=== PATIENT | female | born 1940 | race Caucasian/White ===

== ENCOUNTER 2018-04-24 05:58 | Day surgery (SDC) | payer OTHER, MEDICARE ==
[2018-04-09 12:19] VITALS: BMI 32.3
[2018-04-24] MEDS ORDERED: LIDOCAINE HCL 2% (20ML MULTI-DOSE VIAL) NR ONE (07:13)
[2018-04-24] MEDS ORDERED: MIDAZOLAM HCL 2 MG/2 ML SINGLE DOSE VIAL ONE (07:29)
[2018-04-24] MEDS ORDERED: PROPOFOL 20 ML ONE (07:40)
[2018-04-24] MEDS ORDERED: oxyCODONE HCL 5 MG TABLET PO PRN (12:25)
[2018-04-24] MEDS ORDERED: ONDANSETRON 4 MG/2 ML VIAL IVPUSH PRN (12:25)
[2018-04-24] MEDS ORDERED: LACTATED RINGERS SOLUTION 1,000 ML IV SCH (12:30)
[2018-04-24 13:16] VITALS: TEMP 97.6
[2018-04-24 13:29] VITALS: BP 144/77; PULSE 62
--- NOTE | 2018-04-25 10:58 | OP ---
DATE OF OPERATION: 04/24/2018 PREOPERATIVE DIAGNOSIS: Left carpal tunnel syndrome. POSTOPERATIVE DIAGNOSIS: Left carpal tunnel syndrome. OPERATIVE PROCEDURE: Left carpal tunnel release. ANESTHESIA: Local with sedation. COMPLICATIONS: None. ESTIMATED BLOOD LOSS: Minimal. INDICATION FOR PROCEDURE: The patient is a 77-year-old female with the above finding indicated for operative treatment. Risks, benefits, and alternatives were discussed with patient at length. Proper informed consent was obtained. PROCEDURE: After proper identification of the patient and the correct operative site, patient was brought to the operating room, placed supine on the operative table. Prominences were well padded. Sedation was given. Local anesthesia was given. Left upper extremity was prepped and draped in the usual sterile fashion. Esmarch bandage to exsanguinate the left upper extremity. Tourniquet was inflated to 250 mmHg. A longitudinal incision was made in the proximal aspect of the palm. Incision was taken sharply through the skin with blunt and sharp dissection through the subcutaneous tissues. Palmar fascia was divided longitudinally. Transcarpal ligament was divided longitudinally along with the distal 4 cm of the antebrachial fascia under direct visualization with loupe magnification. This provided complete release of the median nerve at the wrist. Wound was repaired with 5-0 nylon suture, and the patient was brought to the recovery room in stable condition. She tolerated procedure well. Jose Alejandro [id number]
== END 2018-04-24 09:00 | disposition home or self-care (01) ==
LOC: FASU 05:58
PROVIDERS: ATTEND Orthopaedic Surgery Hand Surgery
PROC: 01N50ZZ Release Median Nerve, Open Approach (ICD-10-PCS; principal; 2018-04-24 07:30)
DX: G56.02 Carpal tunnel syndrome, left upper limb (principal)
CPT/HCPCS: 82962

== ENCOUNTER 2024-01-14 16:56 | Emergency (ER) | payer OTHER ==
[2024-01-14 17:34] VITALS: BP 126/80; PULSE 88; RESP 16; TEMP 98.3; BMI 28.4
[2024-01-14] MEDS ORDERED: ACETAMINOPHEN 325 MG TABLET (FP) ONE (18:10)
[2024-01-14] MEDS: ACETAMINOPHEN 325 MG TABLET (FP) PO ONE (18:25)
== END 2024-01-14 20:48 | disposition home or self-care (01) ==
LOC: FER 16:56
DX: S70.11XA Contusion of right thigh, initial encounter (principal); W01.0XXA Fall on same level from slipping, tripping and stumbling without subsequent striking against object, initial encounter; Y92.019 Unspecified place in single-family (private) house as the place of occurrence of the external cause
CPT/HCPCS: 73552-TC-RT-FY; 99283-25